=== PATIENT | female | born 1990 | race African-American/Black ===

== ENCOUNTER 2017-05-23 19:30 | Emergency (ER) | payer SELFPAY, MEDICAID ==
[2017-05-23] MEDS: PHENAZOPYRIDINE 100 MG TAB PO (20:00)
[2017-05-23 20:30] LABS: BASO % 0.2 % (0.0-1.0); EOS # 0.2 10^3/uL (0.0-0.50); EOS % 1.8 % (0.0-3.0); HEMATOCRIT 43.5 % (36.0-47.0); HEMOGLOBIN 14.4 g/dl (12.0-16.0); IMMATURE GRANULOCYTE % 0.2 % (0-3.0); LYMPH # 2.5 10^3/uL (1.5-6.5); LYMPH % 24.8 % (24.0-44.0); MEAN CORPUSCULAR HEMOGLOBIN 30.3 pg (27.0-33.0); MEAN CORPUSCULAR HGB CONC 33.1 g/dl (32.0-36.5); MEAN CORPUSCULAR VOLUME 91.4 fl (80.0-96.0); NEUTROPHILS # 6.3 10^3/uL (1.8-7.7); PLATELET COUNT, AUTOMATED 354 10^3/uL (150-450); RED BLOOD COUNT 4.76 10^6/uL (4.00-5.40); RED CELL DISTRIBUTION WIDTH 13.5 % (11.5-14.5); WHITE BLOOD COUNT 10.1 10^3/uL (4.0-10.0)
[2017-05-23 20:47] LABS: ALBUMIN 3.9 GM/DL (3.2-5.2); ALKALINE PHOSPHATASE 93 U/L (45-117); ALT/SGPT 15 U/L (12-78); ANION GAP 6 MEQ/L (8-16); AST/SGOT 11 U/L (7-37); BILIRUBIN,TOTAL 0.3 MG/DL (0.2-1.0); BLOOD UREA NITROGEN 19 MG/DL (7-18); CALCIUM LEVEL 9.1 MG/DL (8.5-10.1); CARBON DIOXIDE LEVEL 27 MEQ/L (21-32); CHLORIDE LEVEL 105 MEQ/L (98-107); CREATININE FOR GFR 0.98 MG/DL (0.55-1.30); GLOMERULAR FILTRATION RATE > 60.0 (>60); GLUCOSE, FASTING 85 MG/DL (70-100); POTASSIUM SERUM 4.6 MEQ/L (3.5-5.1); SODIUM LEVEL 138 MEQ/L (136-145); TOTAL PROTEIN 8.8 GM/DL (6.4-8.2)
[2017-05-23] MEDS: PERCOCET 5MG/325MG TAB PO (21:00)
[2017-05-23 22:20] LABS: CONTROL LINE UCG INT CTR LINE PRESENT; URINE PREG TEST NEGATIVE (NEGATIVE)
[2017-05-23 22:29] LABS: KETONE, URINE AUTO RFX NEGATIVE (NEGATIVE); LEUKOCYTE ESTERASE UR AUTO RFX 2+ (NEGATIVE); NITRITE, URINE AUTO RFX NEGATIVE (NEGATIVE); RBC, URINE AUTO RFX 11 /HPF (0-3); SPECIFIC GRAVITY UR AUTO RFX 1.012 (1.002-1.035); SQUAM EPITHELIAL CELL UR AURFX 7 /HPF (0-6); TRANSITIONAL EPITHELIAL AU RFX <1 /HPF; WBC, URINE AUTO RFX 162 /HPF (0-3)
== END 2017-05-23 21:30 | disposition home or self-care (01) ==
LOC: M ED 19:30
DX: N39.0 Urinary tract infection, site not specified (principal); Z91.048 Other nonmedicinal substance allergy status
CPT/HCPCS: 80053

== ENCOUNTER → 2017-07-03 | Outpatient (CLI) | payer MEDICAID ==
[2017-07-03 07:19] LABS: CREATININE,RANDOM URINE 93.6 MG/DL; TOTAL PROTEIN,RANDOM URINE 35.2 MG/DL (0.0-12.0)
[2017-07-03 07:21] LABS: CHOLESTEROL LEVEL 163 MG/DL (<200); CHOLESTEROL RISK RATIO 4.289 (<5); HDL CHOLESTEROL 38 MG/DL (>40); LDL CHOLESTEROL 48.8 MG/DL (<100); NON-HDL-C 125 MG/DL; THYROXINE (T4) 9.8 UG/DL (4.5-12.0); TRIGLYCERIDES LEVEL 381 MG/DL (<150)
[2017-07-03 07:40] LABS: APPEARANCE, URINE CLOUDY (CLEAR); BACTERIA, URINE AUTO 1+ (NEGATIVE); BILIRUBIN, URINE AUTO NEGATIVE (NEGATIVE); BLOOD, URINE BLOOD 1+ (NEGATIVE); COLOR, URINE YELLOW (YELLOW); GLUCOSE, URINE (UA) AUTO NEGATIVE (NEGATIVE); KETONE, URINE AUTO NEGATIVE (NEGATIVE); LEUKOCYTE ESTERASE, URINE AUTO 3+ (NEGATIVE); MUCUS, URINE SMALL (NEGATIVE); NITRITE, URINE AUTO NEGATIVE (NEGATIVE); PROTEIN, URINE AUTO 1+ mg/dL (NEGATIVE); RBC, URINE AUTO 9 /HPF (0-3); SPECIFIC GRAVITY URINE AUTO 1.017 (1.002-1.035); SQUAMOUS EPITHELIAL CELL UR AU 13 /HPF (0-6); UROBILINOGEN, URINE AUTO 0.2 mg/dL (0.0-2.0); WBC, URINE AUTO TNTC /HPF (0-3)
== END ==
LOC: M LAB 06:08
DX: R80.9 Proteinuria, unspecified (principal); Z13.220 Encounter for screening for lipoid disorders; Z13.29 Encounter for screening for other suspected endocrine disorder
CPT/HCPCS: 84443

== ENCOUNTER → 2017-08-10 | Outpatient (REF) | payer OTHER, MEDICAID ==
[2017-08-10 12:49] LABS: APPEARANCE, URINE CLEAR (CLEAR); BACTERIA, URINE AUTO 2+ (NEGATIVE); BILIRUBIN, URINE AUTO NEGATIVE (NEGATIVE); BLOOD, URINE BLOOD 1+ (NEGATIVE); COLOR, URINE YELLOW (YELLOW); GLUCOSE, URINE (UA) AUTO NEGATIVE (NEGATIVE); KETONE, URINE AUTO NEGATIVE (NEGATIVE); LEUKOCYTE ESTERASE, URINE AUTO NEGATIVE (NEGATIVE); NITRITE, URINE AUTO NEGATIVE (NEGATIVE); PROTEIN, URINE AUTO NEGATIVE (NEGATIVE); RBC, URINE AUTO 3 /HPF (0-3); SPECIFIC GRAVITY URINE AUTO 1.018 (1.002-1.035); SQUAMOUS EPITHELIAL CELL UR AU 1 /HPF (0-6); UROBILINOGEN, URINE AUTO 0.2 mg/dL (0.0-2.0); WBC, URINE AUTO 16 /HPF (0-3)
== END ==
LOC: M LAB REF 12:27
DX: R80.9 Proteinuria, unspecified (principal)
CPT/HCPCS: 81001

== ENCOUNTER 2018-01-04 13:47 | Emergency (ER) | payer MEDICAID, SELFPAY, OTHER ==
[2018-01-04 14:30] LABS: KETONE, URINE AUTO RFX NEGATIVE (NEGATIVE); MUCUS, URINE RFX SMALL (NEGATIVE); NITRITE, URINE AUTO RFX NEGATIVE (NEGATIVE); RBC, URINE AUTO RFX 0 /HPF (0-3); SPECIFIC GRAVITY UR AUTO RFX 1.019 (1.002-1.035); SQUAM EPITHELIAL CELL UR AURFX 2 /HPF (0-6); WBC, URINE AUTO RFX 2 /HPF (0-3)
[2018-01-04 14:47] LABS: LEUKOCYTE ESTERASE UR AUTO RFX 1+ (NEGATIVE)
[2018-01-04 14:55] LABS: CONTROL LINE UCG INT CTR LINE PRESENT; URINE PREG TEST NEGATIVE (NEGATIVE)
[2018-01-04] MEDS: AZITHROMYCIN 250 MG TAB PO ×2 (16:02)
[2018-01-04] MEDS: cefTRIAXone SOD 250 MG VIAL (J0696) IM ×2 (16:02)
[2018-01-04 17:29] LABS: CHLAMYDIA DNA AMPLIFICATION NEGATIVE (NEGATIVE); GC DNA AMPLIFICATION NEGATIVE (NEGATIVE)
[2018-01-04 19:01] LABS: HIV 1&2 SCREEN CENTAUR NEGATIVE (NEGATIVE)
[2018-01-07 10:48] LABS: HEPATITIS B SURFACE ANTIBODY POSITIVE (POSITIVE); HEPATITIS B SURFACE ANTIGEN NEGATIVE (NEGATIVE)
[2018-01-07 10:48] LABS: HEPATITIS C VIRUS ABY INDEX < 0.0 INDEX (<0.8)
== END 2018-01-04 16:37 | disposition home or self-care (01) ==
LOC: M ED 13:47
DX: Z20.2 Contact with and (suspected) exposure to infections with a predominantly sexual mode of transmission (principal); N76.0 Acute vaginitis; G43.909 Migraine, unspecified, not intractable, without status migrainosus; Z91.010 Allergy to peanuts
CPT/HCPCS: J0696

== ENCOUNTER 2018-02-05 16:37 | Emergency (ER) | payer MEDICAID, SELFPAY ==
[2018-02-05 17:15] LABS: CONTROL LINE UCG INT CTR LINE PRESENT; URINE PREG TEST NEGATIVE (NEGATIVE)
[2018-02-05 17:20] LABS: KETONE, URINE AUTO RFX NEGATIVE (NEGATIVE); MUCUS, URINE RFX SMALL (NEGATIVE); NITRITE, URINE AUTO RFX NEGATIVE (NEGATIVE); RBC, URINE AUTO RFX 10 /HPF (0-3); SQUAM EPITHELIAL CELL UR AURFX 2 /HPF (0-6); WBC, URINE AUTO RFX 2 /HPF (0-3)
[2018-02-05 17:24] LABS: LEUKOCYTE ESTERASE UR AUTO RFX TRACE (NEGATIVE)
[2018-02-05] MEDS: ONDANSETRON 4MG/2ML VIAL (J2405) IV (17:45)
[2018-02-05] MEDS: KETOROLAC 30 MG/ML VIAL (J1885) IV (17:45)
[2018-02-05 18:16] LABS: BASO % 0.2 % (0.0-1.0); EOS % 0.3 % (0.0-3.0); HEMATOCRIT 41.2 % (36.0-47.0); IMMATURE GRANULOCYTE % 0.2 % (0-3.0); MEAN CORPUSCULAR HEMOGLOBIN 31.1 pg (27.0-33.0); MEAN CORPUSCULAR VOLUME 91.6 fl (80.0-96.0); MONO # 1.3 10^3/uL (0.0-0.8); MONO % 10.5 % (0.0-5.0); NEUTROPHILS # 8.5 10^3/uL (1.8-7.7); NEUTROPHILS % 71.8 % (36.0-66.0); PLATELET COUNT, AUTOMATED 208 10^3/uL (150-450); RED CELL DISTRIBUTION WIDTH 13.2 % (11.5-14.5); WHITE BLOOD COUNT 11.9 10^3/uL (4.0-10.0)
[2018-02-05 18:45] LABS: ANION GAP 8 MEQ/L (8-16); BLOOD UREA NITROGEN 12 MG/DL (7-18); CALCIUM LEVEL 8.6 MG/DL (8.5-10.1); CARBON DIOXIDE LEVEL 25 MEQ/L (21-32); CHLORIDE LEVEL 103 MEQ/L (98-107); CREATININE FOR GFR 0.97 MG/DL (0.55-1.30); GLOMERULAR FILTRATION RATE > 60.0 (>60); GLUCOSE, FASTING 87 MG/DL (70-100); POTASSIUM SERUM 4.2 MEQ/L (3.5-5.1); SODIUM LEVEL 136 MEQ/L (136-145)
[2018-02-05] MEDS: FLUCONAZOLE 100 MG TAB PO (19:00)
[2018-02-05] MEDS: NITROFURANTOIN (MACROBID) 100 MG CAP PO (19:00)
[2018-02-05] MEDS: FLUCONAZOLE 50MG TABLET PO (19:00)
== END 2018-02-05 19:06 | disposition home or self-care (01) ==
LOC: M ED 16:37
DX: N39.0 Urinary tract infection, site not specified (principal); R11.0 Nausea; Z87.440 Personal history of urinary (tract) infections; G43.809 Other migraine, not intractable, without status migrainosus; F17.200 Nicotine dependence, unspecified, uncomplicated; Z91.010 Allergy to peanuts
CPT/HCPCS: J2405

== ENCOUNTER 2018-03-27 07:54 | Emergency (ER) | payer MEDICAID, SELFPAY ==
[~2018-03-27] VITALS: Ht 162.6 cm; Wt 49.1 kg
[~2018-03-27 07:54] MED LIST: CIPR-249 PO; CYCL5TAB PO; DIFL150T PO; FLAG500T PO; IBUP-1022 PO; MACR100C43 PO; PYRI1TAB5 PO; SUMA4INJ3 SC
[2018-03-27 08:30] LABS: BASO % 0.2 % (0.0-1.0); EOS # 0.1 10^3/uL (0.0-0.50); EOS % 1.4 % (0.0-3.0); HEMATOCRIT 41.1 % (36.0-47.0); HEMOGLOBIN 13.9 g/dl (12.0-15.5); LYMPH # 2.7 10^3/uL (1.5-6.5); LYMPH % 27.3 % (24.0-44.0); MEAN CORPUSCULAR HEMOGLOBIN 31.5 pg (27.0-33.0); MEAN CORPUSCULAR HGB CONC 33.8 g/dl (32.0-36.5); MEAN CORPUSCULAR VOLUME 93.2 fl (80.0-96.0); MONO # 1.1 10^3/uL (0.0-0.8); MONO % 11.7 % (0.0-5.0); NEUTROPHILS # 5.8 10^3/uL (1.8-7.7); NEUTROPHILS % 59.2 % (36.0-66.0); PLATELET COUNT, AUTOMATED 254 10^3/uL (150-450); RED BLOOD COUNT 4.41 10^6/uL (4.00-5.40); WHITE BLOOD COUNT 9.7 10^3/uL (4.0-10.0)
[2018-03-27] MEDS ORDERED: NS 1,000 ML IV ONE ×2 (08:30→09:45)
[2018-03-27 08:59] LABS: BLOOD UREA NITROGEN 24 MG/DL (7-18); CALCIUM LEVEL 8.6 MG/DL (8.5-10.1); CARBON DIOXIDE LEVEL 23 MEQ/L (21-32); CHLORIDE LEVEL 106 MEQ/L (98-107); CREATININE FOR GFR 0.99 MG/DL (0.55-1.30); GLOMERULAR FILTRATION RATE > 60.0 (>60); GLUCOSE, FASTING 85 MG/DL (70-100); POTASSIUM SERUM 3.7 MEQ/L (3.5-5.1); SODIUM LEVEL 137 MEQ/L (136-145); THYROID STIMULATING HORMONE 0.923 uIU/ML (0.358-3.740)
[2018-03-27 09:28] LABS: HCG, SERUM QUALITATIVE NEGATIVE (NEGATIVE)
[2018-03-27 11:12] VITALS: BP 112/67
--- NOTE | 2018-03-27 13:34 | ECGEPIP ---
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
== END 2018-03-27 11:41 | disposition home or self-care (01) ==
LOC: M ED 07:54
DX: R55 Syncope and collapse (principal); Z91.010 Allergy to peanuts

== ENCOUNTER 2018-04-29 10:37 | Emergency (ER) | payer MEDICAID, SELFPAY ==
[~2018-04-29] VITALS: Ht 162.6 cm; Wt 52.7 kg
[2018-04-29 11:43] LABS: BASO % 0.3 % (0.0-1.0); EOS # 0.2 10^3/uL (0.0-0.50); EOS % 1.9 % (0.0-3.0); HEMATOCRIT 43.5 % (36.0-47.0); HEMOGLOBIN 14.4 g/dl (12.0-15.5); LYMPH # 2.6 10^3/uL (1.5-6.5); LYMPH % 26.9 % (24.0-44.0); MEAN CORPUSCULAR HEMOGLOBIN 31.5 pg (27.0-33.0); MEAN CORPUSCULAR HGB CONC 33.1 g/dl (32.0-36.5); MEAN CORPUSCULAR VOLUME 95.2 fl (80.0-96.0); MONO % 9.8 % (0.0-5.0); NEUTROPHILS # 5.9 10^3/uL (1.8-7.7); NEUTROPHILS % 60.6 % (36.0-66.0); PLATELET COUNT, AUTOMATED 411 10^3/uL (150-450); RED BLOOD COUNT 4.57 10^6/uL (4.00-5.40); WHITE BLOOD COUNT 9.8 10^3/uL (4.0-10.0)
[2018-04-29 12:11] LABS: BLOOD UREA NITROGEN 16 MG/DL (7-18); CARBON DIOXIDE LEVEL 28 MEQ/L (21-32); CHLORIDE LEVEL 102 MEQ/L (98-107); CREATININE FOR GFR 0.98 MG/DL (0.55-1.30); GLOMERULAR FILTRATION RATE > 60.0 (>60); GLUCOSE, FASTING 92 MG/DL (70-100); POTASSIUM SERUM 4.5 MEQ/L (3.5-5.1); SODIUM LEVEL 137 MEQ/L (136-145)
[2018-04-29 12:45] LABS: APPEARANCE, URINE CLEAR (CLEAR); BACTERIA, URINE AUTO NEGATIVE (NEGATIVE); BILIRUBIN, URINE AUTO NEGATIVE (NEGATIVE); BLOOD, URINE BLOOD 1+ (NEGATIVE); COLOR, URINE YELLOW (YELLOW); GLUCOSE, URINE (UA) AUTO NEGATIVE (NEGATIVE); KETONE, URINE AUTO NEGATIVE (NEGATIVE); LEUKOCYTE ESTERASE, URINE AUTO NEGATIVE (NEGATIVE); NITRITE, URINE AUTO NEGATIVE (NEGATIVE); PROTEIN, URINE AUTO NEGATIVE (NEGATIVE); RBC, URINE AUTO 3 /HPF (0-3); SPECIFIC GRAVITY URINE AUTO 1.017 (1.002-1.035); SQUAMOUS EPITHELIAL CELL UR AU 4 /HPF (0-6); UROBILINOGEN, URINE AUTO 0.2 mg/dL (0.0-2.0); WBC, URINE AUTO 1 /HPF (0-3)
[2018-04-29 13:51] VITALS: BP 108/67
--- NOTE | 2018-04-29 15:29 | REP ---
PELVIC ULTRASOUND: Real-time sonographic evaluation of pelvis performed utilizing transabdominal and endovaginal technique. Bladder is empty. Uterus measures 8.0 x 4.9 x 6.7 cm. Endometrial thickness is 8 mm with no endometrial fluid collection. Right ovary measures 3.6 x 1.4 x 2.8 cm and left ovary 3.3 x 1.8 x 2.2 cm. Complex cystic structure in the left ovary may represent a corpus luteum 1.5 cm in diameter. There is no torsion of either ovary, resistive index right ovary 0.43 and left ovary 0.47. There is moderate complex free fluid in the pelvis. Reportedly, the patient had removal of ectopic with tube on the right, 04/25/2018. Myometrium is diffusely heterogeneous in echotexture. In the right adnexa, there is an oval hypoechoic structure 2.3 x 1.0 x 2.5 cm, likely representing a clot. Similar structure in the left adnexa is visualized measuring 1.8 x 0.9 x 1.4 cm. IMPRESSION: Diffusely heterogeneous myometrial echotexture of uncertain significance. No endometrial fluid collection. No evidence of ovarian torsion. Complex cystic structure in the left ovary probably represents a complex corpus luteum. There is moderate complex free fluid. There is an oval hypoechoic structure in each adnexal region probably representing clot, maximum diameter on the right is 2.5 cm and left 1.8 cm. Electronically Signed by Dre Mederos MD 04/29/2018 11:50 P
--- NOTE | 2018-05-02 12:32 | ED PDOC ---
Post-Departure Follow-Up certified letter sent to pt re formal read of pelvic us for fu . No pcp or surge on documented in chart. please obtain name and fax to that doctor. Nataliia Arauz MD May 02, 2018 12:32
== END 2018-04-29 13:53 | disposition home or self-care (01) ==
LOC: M ED 10:37
DX: T81.31XA Disruption of external operation (surgical) wound, not elsewhere classified, initial encounter (principal); N83.12 Corpus luteum cyst of left ovary; X58.XXXA Exposure to other specified factors, initial encounter; Y92.89 Other specified places as the place of occurrence of the external cause; Z91.010 Allergy to peanuts

== ENCOUNTER 2018-06-29 04:18 | Emergency (ER) | payer MEDICAID ==
[~2018-06-29] VITALS: Ht 162.6 cm; Wt 50.0 kg
[2018-06-29 04:18] VITALS: BP 122/68
[2018-06-29] MEDS ORDERED: SUMA6KIT SC (04:25)
[2018-06-29] MEDS ORDERED: KETOROLAC 60 MG/2 ML VIAL (J1885) IM ONE (04:45)
[2018-06-29 05:08] LABS: BASO % 0.3 % (0.0-1.0); EOS # 0.2 10^3/uL (0.0-0.50); EOS % 1.9 % (0.0-3.0); HEMATOCRIT 45.8 % (36.0-47.0); LYMPH # 2.1 10^3/uL (1.5-6.5); LYMPH % 23.6 % (24.0-44.0); MEAN CORPUSCULAR HEMOGLOBIN 30.7 pg (27.0-33.0); MEAN CORPUSCULAR HGB CONC 32.8 g/dl (32.0-36.5); MEAN CORPUSCULAR VOLUME 93.7 fl (80.0-96.0); MONO # 0.8 10^3/uL (0.0-0.8); MONO % 9.2 % (0.0-5.0); NEUTROPHILS # 5.8 10^3/uL (1.8-7.7); NEUTROPHILS % 64.7 % (36.0-66.0); PLATELET COUNT, AUTOMATED 333 10^3/uL (150-450); RED BLOOD COUNT 4.89 10^6/uL (4.00-5.40)
[2018-06-29 05:43] LABS: BLOOD UREA NITROGEN 11 MG/DL (7-18); CALCIUM LEVEL 9.2 MG/DL (8.5-10.1); CARBON DIOXIDE LEVEL 28 MEQ/L (21-32); CHLORIDE LEVEL 105 MEQ/L (98-107); CREATININE FOR GFR 0.99 MG/DL (0.55-1.30); GLOMERULAR FILTRATION RATE > 60.0 (>60); GLUCOSE, FASTING 95 MG/DL (70-100); SODIUM LEVEL 140 MEQ/L (136-145)
[2018-06-29] MEDS ORDERED: MORPHINE 10 MG/ML 1ML VIAL (J2270) IM ONE (05:45)
[2018-06-29 05:47] LABS: HCG, SERUM QUALITATIVE NEGATIVE (NEGATIVE)
--- NOTE | 2018-06-29 06:02 | REPVR ---
EXAM: CT Abdomen and Pelvis Without Contrast EXAM DATE/TIME: 06/29/2018 4:38 AM CLINICAL HISTORY: 28 years old, female; Pain; Abdominal pain; Localized; Lower; Prior surgery; Surgery date: <1 month; Surgery type: Gyno; Additional info: Lower abd pain TECHNIQUE: Imaging protocol: Axial computed tomography images of the abdomen and pelvis without contrast. Coronal and sagittal reformatted images were created and reviewed. Radiation optimization: All CT scans at this facility use at least one of these dose optimization techniques: automated exposure control; mA and/or kV adjustment per patient size (includes targeted exams where dose is matched to clinical indication); or iterative reconstruction. COMPARISON: CT ABD PELVIS W/O CONTRAST 02/05/2018 5:35 PM FINDINGS: Lower thorax: No acute findings. ABDOMEN: Liver: Normal. No mass. Gallbladder and bile ducts: Normal. No calcified stones. No ductal dilation. Pancreas: Normal. No ductal dilation. Spleen: Normal. No splenomegaly. Adrenals: Normal. No mass. Kidneys and ureters: There are a few punctate tiny 1 mm right and left renal stones. Stomach and bowel: Normal. No obstruction. No mucosal thickening. Appendix: No evidence of appendicitis. PELVIS: Bladder: Unremarkable as visualized. Reproductive: Unremarkable as visualized. ABDOMEN and PELVIS: Intraperitoneal space: Normal. No free air. No significant fluid collection. Bones/joints: No acute fracture. No dislocation. Soft tissues: Unremarkable. Vasculature: Normal. No abdominal aortic aneurysm. Lymph nodes: Normal. No enlarged lymph nodes. IMPRESSION: 1. No definite CT evidence of acute abdominal or pelvic pathology. 2. Few punctate 1 mm renal stones. No hydronephrosis seen. Electronically signed by: Logan Jordan On 06/29/2018 06:01:32 AM
== END 2018-06-29 06:28 | disposition home or self-care (01) ==
LOC: M ED 04:18
DX: R10.30 Lower abdominal pain, unspecified (principal)

== ENCOUNTER 2018-07-08 10:50 | Emergency (ER) | payer MEDICAID ==
[~2018-07-08] VITALS: Ht 160 cm; Wt 50.0 kg
[~2018-07-08 10:50] MED LIST changes: +SUMA6KIT SC
[2018-07-08] MEDS ORDERED: FIOR1CAP PO (11:01)
[2018-07-08] MEDS ORDERED: EXCETAB33 PO (11:01)
[2018-07-08] MEDS ORDERED: diphenhydrAMINE INJ 50MG/ML VIAL (J1200) IV STA (11:33)
[2018-07-08] MEDS ORDERED: cefTRIAXone SOD 250 MG VIAL (J0696) IM ONE (11:45)
[2018-07-08] MEDS ORDERED: METOCLOPRAMIDE INJ 10MG/2ML VIAL (J2765) IV ONE (11:45)
[2018-07-08] MEDS ORDERED: LIDOCAINE 1% SDV 5 ML VIAL DILUENT ONE (11:45)
[2018-07-08] MEDS ORDERED: NS 1,000 ML IV ONE (11:45)
[2018-07-08] MEDS ORDERED: KETOROLAC 30 MG/ML VIAL (J1885) IV ONE (11:45)
[2018-07-08] MEDS ORDERED: AZITHROMYCIN 250 MG TAB PO ONE (11:45)
[2018-07-08 13:20] LABS: CHLAMYDIA DNA AMPLIFICATION NEGATIVE (NEGATIVE); GC DNA AMPLIFICATION NEGATIVE (NEGATIVE)
[2018-07-08] MEDS ORDERED: FLAG500T PO (14:01)
[2018-07-08] MEDS ORDERED: DIFL150T PO (14:01)
[2018-07-08 14:13] VITALS: BP 114/69
== END 2018-07-08 14:16 | disposition home or self-care (01) ==
LOC: M ED 10:50
DX: G43.909 Migraine, unspecified, not intractable, without status migrainosus (principal); B37.3 Candidiasis of vulva and vagina; Z91.010 Allergy to peanuts; Z79.899 Other long term (current) drug therapy
CPT/HCPCS: 81025; 87210; 87491; 87591; 96361; 96372; 96374; 96375; 99284; J0696; J1200; J1885; J2765

== ENCOUNTER 2018-10-07 12:46 | Emergency (ER) | payer MEDICAID, SELFPAY ==
[~2018-10-07] VITALS: Ht 162.6 cm; Wt 45.2 kg
[~2018-10-07 12:46] MED LIST changes: +EXCETAB33 PO; +FIOR1CAP PO
[2018-10-07] MEDS ORDERED: ZOFR4TAB16 PO (12:53)
[2018-10-07] MEDS ORDERED: KETOROLAC 30 MG/ML VIAL (J1885) IV ONE (17:45)
[2018-10-07] MEDS ORDERED: NS 1,000 ML IV ONE ×2 (17:45→19:45)
[2018-10-07] MEDS ORDERED: METOCLOPRAMIDE INJ 10MG/2ML VIAL (J2765) IV ONE (17:45)
[2018-10-07 18:01] LABS: BASO % 0.3 % (0.0-1.0); EOS # 0.2 10^3/uL (0.0-0.50); EOS % 1.8 % (0.0-3.0); HEMATOCRIT 47.4 % (36.0-47.0); HEMOGLOBIN 15.6 g/dl (12.0-15.5); LYMPH # 3.2 10^3/uL (1.5-6.5); LYMPH % 24.8 % (24.0-44.0); MEAN CORPUSCULAR HEMOGLOBIN 30.9 pg (27.0-33.0); MEAN CORPUSCULAR HGB CONC 32.9 g/dl (32.0-36.5); MEAN CORPUSCULAR VOLUME 93.9 fl (80.0-96.0); MONO # 1.6 10^3/uL (0.0-0.8); MONO % 12.1 % (0.0-5.0); NEUTROPHILS # 7.8 10^3/uL (1.8-7.7); NEUTROPHILS % 60.7 % (36.0-66.0); PLATELET COUNT, AUTOMATED 350 10^3/uL (150-450); RED BLOOD COUNT 5.05 10^6/uL (4.00-5.40); WHITE BLOOD COUNT 12.9 10^3/uL (4.0-10.0)
--- NOTE | 2018-10-07 18:12 | REPVR ---
EXAM: CT Head Without Contrast EXAM DATE/TIME: 10/07/2018 5:49 PM CLINICAL HISTORY: 28 years old, female; Syncope and collapse TECHNIQUE: Imaging protocol: Computed tomography images of the head without contrast. Radiation optimization: All CT scans at this facility use at least one of these dose optimization techniques: automated exposure control; mA and/or kV adjustment per patient size (includes targeted exams where dose is matched to clinical indication); or iterative reconstruction. COMPARISON: No relevant prior studies available. FINDINGS: Brain: No CT evidence of acute intracranial hemorrhage or acute territorial infarction. No significant mass effect or midline shift. Basal cisterns patent. Ventricles: Normal in size and configuration. Bones/joints: No acute osseous abnormality. Sinuses: Grossly unremarkable. Mastoid air cells: Grossly unremarkable. Soft tissues: Grossly unremarkable. IMPRESSION: No CT evidence of acute intracranial pathology. Electronically signed by: Vipul Infante On 10/07/2018 18:12:06 PM
[2018-10-07 18:20] LABS: BLOOD UREA NITROGEN 13 MG/DL (7-18); CALCIUM LEVEL 9.9 MG/DL (8.5-10.1); CARBON DIOXIDE LEVEL 32 MEQ/L (21-32); CHLORIDE LEVEL 104 MEQ/L (98-107); CREATININE FOR GFR 0.96 MG/DL (0.55-1.30); FREE T4 1.24 NG/DL (0.76-1.46); GLOMERULAR FILTRATION RATE > 60.0 (>60); GLUCOSE, FASTING 70 MG/DL (70-100); MAGNESIUM LEVEL 2.3 MG/DL (1.8-2.4); POTASSIUM SERUM 4.7 MEQ/L (3.5-5.1); SODIUM LEVEL 140 MEQ/L (136-145)
[2018-10-07] MEDS ORDERED: diazePAM 5 MG TAB PO ONE (19:15)
--- NOTE | 2018-10-07 20:06 | ECGEPIP ---
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 Order Number: [id number] Reading MD: Enmanuel Ayala Measurements Intervals [place] Rate: 68 P: 19 CA: 150 QRS: 69 QRSD: 83 T: 48 QT: 371 QTc: 395 Interpretive Statements SINUS RHYTHM SIMILAR TO 03/27/18 Electronically Signed on 10-07-2018 20:06:00 EDT by Enmanuel Ayala
[2018-10-07] MEDS ORDERED: CIPR-249 PO (21:28)
[2018-10-07] MEDS ORDERED: KETO10TAB PO (21:28)
[2018-10-07] MEDS ORDERED: REGL10TA6 PO (21:29)
[2018-10-07 21:42] VITALS: BP 108/70
== END 2018-10-07 21:45 | disposition home or self-care (01) ==
LOC: M ED 12:46
DX: G43.909 Migraine, unspecified, not intractable, without status migrainosus (principal); N39.0 Urinary tract infection, site not specified
CPT/HCPCS: 70450; 80047; 80048; 81001; 83735; 84439; 84443; 84702; 85025; 87086; 93005; 96361; 96374; 96375; 99284; J1885; J2765